=== PATIENT | female | born 1945 | race Caucasian/White ===

== ENCOUNTER → 2020-05-01 | Outpatient (CLI) | payer MEDICARE, BC ==
[2020-05-01 15:33] LABS: APPEARANCE,URINE CLEAR; BILIRUBIN,URINE NEGATIVE (NEGATIVE); COLOR,URINE YELLOW; GLUCOSE, URINE NEGATIVE (NEGATIVE); KETONES,URINE NEGATIVE (NEGATIVE); LEUKOCYTE ESTERASE,URINE NEGATIVE (NEGATIVE); NITRITE,URINE NEGATIVE (NEGATIVE); PROTEIN,URINE NEGATIVE (NEGATIVE); URINE SPECIFIC GRAVITY 1.012; UROBILINOGEN,URINE NEGATIVE mg/dL (<2.0)
[2020-05-01 15:56] LABS: ABSOLUTE BASOPHILS # (AUTO) 0.1 10^3/uL (0.0-0.2); ABSOLUTE EOSINOPHILS # (AUTO) 0.1 10^3/uL (0.0-0.6); ABSOLUTE LYMPHOCYTES (AUTO) 2.3 10^3/uL (0.5-4.7); ABSOLUTE MONOCYTES (AUTO) 0.7 10^3/uL (0.1-1.4); ABSOLUTE NEUT (AUTO) 5.8 10^3/uL (1.7-8.2); BASOPHILS % (AUTO) 0.8 % (0-2); HEMOGLOBIN 14.1 g/dL (12.0-15.5); LYMPHOCYTES % (AUTO) 25.8 % (13-45); MEAN CORPUSCULAR HEMOGLOBIN 31.4 pg (27.0-33.4); MEAN CORPUSCULAR HGB CONC 34.4 g/dL (32.0-36.0); MEAN CORPUSCULAR VOLUME 91 fl (80-97); PLATELET COUNT 270 10^3/uL (150-450); RED BLOOD COUNT 4.49 10^6/uL (3.72-5.28); RED CELL DISTRIBUTION WIDTH 13.2 % (11.5-14.0); SEGMENTED NEUTROPHILS % (AUTO) 64.4 % (42-78); TOTAL CELLS COUNTED % (AUTO) 100 %
[2020-05-01 16:19] LABS: ANION GAP 10 (5-19); BLOOD UREA NITROGEN 24 mg/dL (7-20); CALCIUM 9.9 mg/dL (8.4-10.2); CARBON DIOXIDE 32 mmol/L (22-30); CHLORIDE 94 mmol/L (98-107); GLUCOSE 106 mg/dL (75-110); POTASSIUM 3.8 mmol/L (3.6-5.0)
[2020-05-01 16:35] LABS: ERYTHROCYTE SEDIMENTATION RATE 10 mm/hr (0-30)
--- NOTE | 2020-05-01 17:26 | EKG REPORT ---
SEVERITY:- NORMAL ECG - SINUS RHYTHM : Confirmed by: Mary Mckenzie 01-May-2020 17:25:41
--- NOTE | 2020-05-02 13:22 | RADIOLOGY REPORT (SQ) ---
EXAM DESCRIPTION: CHEST PA/LATERAL IMAGES COMPLETED DATE/TIME: 05/01/2020 3:50 pm REASON FOR STUDY: PRE-OP COMPARISON: None. EXAM PARAMETERS: NUMBER OF VIEWS: two views TECHNIQUE: Digital Frontal and Lateral radiographic views of the chest acquired. RADIATION DOSE: NA LIMITATIONS: none FINDINGS: LUNGS AND PLEURA: No opacities, masses or pneumothorax. No pleural effusion. MEDIASTINUM AND HILAR STRUCTURES: No masses or contour abnormalities. HEART AND VASCULAR STRUCTURES: Heart normal size. No evidence for failure. BONES: No acute findings. HARDWARE: None in the chest. OTHER: No other significant finding. IMPRESSION: NO SIGNIFICANT RADIOGRAPHIC FINDING IN THE CHEST. TECHNICAL DOCUMENTATION: JOB ID: [id number] 2010 [employer]- All Rights Reserved Reading location - IP/workstation name: [email or web address]
== END ==
LOC: OD 14:50
PROVIDERS: ATTEND Orthopaedic Surgery
DX: Z01.810 Encounter for preprocedural cardiovascular examination (principal); Z01.811 Encounter for preprocedural respiratory examination; Z01.812 Encounter for preprocedural laboratory examination
CPT/HCPCS: 36415; 71046; 80048; 81001; 82040; 82306; 83036; 85025; 85652; 86141; 93005; 93010

== ENCOUNTER 2020-05-11 08:01 | Day surgery (SDC) | payer MEDICARE, BC ==
[~2020-05-11 08:01] MED LIST: ACETAMINOPHEN 325 MG TABLET ONE; ACETAMINOPHEN 325 MG TABLET PO PRN; CEFAZOLIN 2 GM/D5W RTU 2 GM/50 ML RTUPB IV ONE; CEFAZOLIN 2 GM/D5W RTU 2 GM/50 ML RTUPB IV PRN; CELECOXIB 200 MG CAPSULE ONE; CELECOXIB 200 MG CAPSULE PO PRN; GABAPENTIN 100 MG CAPSULE ONE; GABAPENTIN 100 MG CAPSULE PO PRN; LACTATED RINGERS 1000 ML IV PRN; LIDOCAINE 0.5% INJ-PF (5 MG/ML) 50 ML SDV SUBCUT PRN; OXYCODONE HCL SR 10 MG TABLET PO ONE; OXYCODONE HCL SR 10 MG TABLET PO PRN; SCOPOLAMINE HYDROBROMIDE 1.5 MG PATCH.TD72 ONE; SCOPOLAMINE HYDROBROMIDE 1.5 MG PATCH.TD72 TD PRN; TRAMADOL HCL 50 MG TABLET ONE; TRAMADOL HCL 50 MG TABLET PO PRN; TRANEXAMIC ACID INJ/PF 1,000 MG/10 ML SDV IV PRN; VANCOMYCIN HCL 1,000 MG in DEXTROSE 5%-WATER 250 ML IV PRN
[2020-05-11] MEDS ORDERED: BUPIVACAINE HCL 0.25 % INJ/PF (2.5 MG/1 ML) 30 ML VIAL ONE (09:11)
[2020-05-11] MEDS ORDERED: LIDOCAINE 1% INJ-PF (10 MG/ML) 30 ML SDV ONE (09:11)
[2020-05-11] MEDS ORDERED: VANCOMYCIN HCL INJ 1000 MG VIAL ONE (09:11)
[2020-05-11] MEDS ORDERED: KETOROLAC TROMETHAMINE INJ/PF 30 MG/1 ML SDV ONE (09:11)
[2020-05-11] MEDS ORDERED: OXYCODONE HCL IR 5 MG TABLET PO PRN ×4 (09:44)
[2020-05-11] MEDS ORDERED: NORMAL SALINE 1000 ML 1,000 ML IV ONE (09:44)
[2020-05-11] MEDS ORDERED: ZOLPIDEM TARTRATE 5 MG TABLET PO PRN (09:44)
[2020-05-11] MEDS ORDERED: DOCUSATE SODIUM 100 MG CAPSULE PO PRN (09:44)
[2020-05-11] MEDS ORDERED: ONDANSETRON 4 MG TAB.RAPDIS PO PRN (09:44)
[2020-05-11] MEDS ORDERED: MORPHINE SULFATE 10 MG/ML INJ IV PRN ×2 (09:44)
[2020-05-11] MEDS ORDERED: DIPHENHYDRAMINE HCL 25 MG CAPSULE PO PRN (09:44)
[2020-05-11] MEDS ORDERED: TRAMADOL HCL 50 MG TABLET PO PRN (09:44)
[2020-05-11] MEDS ORDERED: HYDROCHLOROTHIAZIDE PO SCH (10:00)
[2020-05-11] MEDS ORDERED: (PENDING PHARMACY ID) (Simvastatin [Simvastatin] 20 MG) PO SCH (10:00)
[2020-05-11] MEDS ORDERED: OLMESARTAN PO SCH (10:00)
[2020-05-11] MEDS ORDERED: MELOXICAM 7.5 MG TABLET PO SCH (10:00)
[2020-05-11] MEDS ORDERED: (PENDING PHARMACY ID) (Potassium Chloride [Klor-Con M20] 20 MEQ) PO SCH (10:00)
[2020-05-11] MEDS ORDERED: (PENDING PHARMACY ID) (Calcium Carbonate [Calcium] 500 MG) PO SCH (10:00)
[2020-05-11] MEDS ORDERED: [UNRECOGNIZED DRUG - OTHER] PO SCH (10:00)
[2020-05-11] MEDS ORDERED: FENTANYL CITRATE INJ/PF 100 MCG/2 ML AMPUL ONE ×2 (10:07→11:20)
[2020-05-11] MEDS ORDERED: MIDAZOLAM 2 MG/2 ML INJ ONE (10:07)
[2020-05-11] MEDS ORDERED: TRANEXAMIC ACID INJ/PF 1,000 MG/10 ML SDV ONE (10:08)
[2020-05-11] MEDS ORDERED: EPHEDRINE SULFATE INJ 50 MG/1 ML AMPULE ONE (10:08)
[2020-05-11] MEDS ORDERED: PROPOFOL INJ 200 MG/20 ML VIAL IV ONE (10:08)
[2020-05-11] MEDS ORDERED: TRANEXAMIC ACID INJ/PF 1,000 MG/10 ML SDV IV ONE (10:15)
[2020-05-11] MEDS ORDERED: PANTOPRAZOLE SODIUM 20 MG TABLET.DR PO ONE (10:15)
[2020-05-11] MEDS ORDERED: DEXAMETHASONE SOD PHOS INJ 10 MG/1 ML VIAL IV ONE (10:20)
[2020-05-11] MEDS ORDERED: PROMETHAZINE HCL INJ 25 MG/1 ML VIAL IV PRN ×2 (11:34)
[2020-05-11] MEDS ORDERED: DIPHENHYDRAMINE HCL 50 MG/ML VIAL IV PRN (11:34)
[2020-05-11] MEDS ORDERED: MEPERIDINE HCL/PF INJ 25 MG/1 ML DISP.SYRIN IV PRN (11:34)
[2020-05-11] MEDS ORDERED: FENTANYL CITRATE INJ/PF 100 MCG/2 ML AMPUL IV PRN ×3 (11:34)
[2020-05-11] MEDS ORDERED: ONDANSETRON HCL INJ/PF 4 MG/2 ML SDV IV PRN (11:34)
[2020-05-11] MEDS ORDERED: OXYCODONE-ACETAMINOPHEN 5-325 MG TABLET PO PRN ×2 (11:34)
[2020-05-11] MEDS ORDERED: HYDROMORPHONE HCL INJ/PF 2 MG/ML AMPULE IV PRN (11:36)
--- NOTE | 2020-05-11 12:21 | Operative Report ---
Operative Report DATE OF SURGERY: 05/11/20 PREOPERATIVE DIAGNOSIS: Severe left hip primary osteoarthritis POSTOPERATIVE DIAGNOSIS: Severe left hip primary osteoarthritis OPERATION: Left total hip arthroplasty SURGEON: PARTH DANGELO JR ANESTHESIA: GA COMPLICATIONS: None ESTIMATED BLOOD LOSS: 300 PROCEDURE: Implants: [employer] a fit size 6 femoral stem with lateral offset, a R3 size 50 cup, and a standard liner, a 0 neck length 32 mm Oxinium head BRIEF HISTORY: 74 year old female with severe degenerative arthritis of left hip, which has failed conservative treatment and has elected for a total hip arthroplasty. Risks include but are not limited to bleeding, infection, anesthesia, , injury to nerve or vessel, pain, scar, leg length inequality, dislocation, future surgery, and blood clots. Patient read through the pre-op counseling form and signed and consented for surgery on their left hip. OPERATIVE PROCEDURE: Patient was brought to the operating room on and underwent spinal anesthesia. 2 grams of Ancef and 1 g of vancomycin was given. After proper anesthesia was obtained, patient was positioned, padded, prepped, and draped in the usual sterile fashion on the operating room table. Appropriate time out was performed. An anterior approach to the hip was undertaken with meticulous hemostasis through the deep interval. A capsulectomy was performed followed by exposure of the femoral neck. The femoral neck was cut in line with the femoral broach and the femoral head was removed. The acetabulum was then exposed with three retractors in an atraumatic fashion. Soft tissue and osteophytes were removed. Medialization reaming was performed followed by anatomic reaming up to accept a 50 mm acetabulum. Wound was irrigated with dilute betadyne solution and the 50 mm acetabulum was impacted into correct position and stability checked by manipulating the impaction handle which rocked the pelvis. A standard liner was impacted into the shell with good stability. Potential impinging osteophytes were removed. Attention was then directed toward the femur, which was exposed with two retractors in an atraumatic fashion. A bone hook was placed to carefully perform releases along the superior capsule until the femur was safely delivered through the wound. A preparing box tender was utilized followed by lateralization rasping and then broaching up to accept a 6 femur. With a lateral offset neck and a 0 neck length head, stability was good in flexion and extension with equal leg lengths. The real 6 offset femur was impacted into a copiously irrigated femoral canal. A 32 mm Oxinium head was impacted on a clean dry femoral taper. The hip was irrigated and reduced, further irrigation with antibiotic solution, betadine solution, then antibiotic solution. Bleeders were coagulated with bovie cautery. The fascia was then closed with number 2 Stratofix; the subcutaneous tissue closed with interrupted inverted 2-0 monocryl then running 3-0 monocryl subcuticular. A silver dressing was then applied. All needle sponge and instrument counts were correct. Patient was awakened from sedation anesthesia and taken to recovery room in good condition. Thank you, Parth Dangelo, DO
--- NOTE | 2020-05-11 12:29 | Discharge Summary ---
Discharge Summary (SDC) - Discharge Final Diagnosis: Left hip severe primary osteoarthritis Date of Surgery: 05/11/20 Discharge Date: 05/11/20 Condition: Stable Treatment or Instructions: Full details of postoperative instructions have been provided to the patient in the clinic. Additionally they should maintain their bandage in place for 10 days, and then changed to a dry dressing. They can take showers with this occlusive dressing but any further dressing should also be occlusive. No showers with the wound unprotected until cleared by me in the clinic. If the bandage falls off early or become saturated they can change as needed to another occlusive dressing. Follow-up with Dr. Parth Wharton, orthopedic surgeon at [facility] for surgery, in 10 days. Call for an appointment. . [address], [place] [address] Discharge Diet: As Tolerated Respiratory Treatments at Home: Deep Breathing/Coughing Discharge Activity: Activity As Tolerated, No Driving, Keep Legs Elevated, No tub bath, Walk Frequently Adaptive Devices on Discharge: Rolling Walker, Bedside Commode Report the Following to Your Physician Immediately: Shortness of Breath, Fever over 101 Degrees, Unusual Bleeding, Drainage-Yellow
[2020-05-11] MEDS ORDERED: KETAMINE HCL INJ 500 MG/10 ML VIAL ONE (12:44)
[2020-05-11] MEDS: FENTANYL CITRATE INJ/PF 100 MCG/2 ML AMPUL ONE ×2 (12:50→13:00)
[2020-05-11] MEDS ORDERED: NEOSTIGMINE METHYLSULFATE 10 MG/10 ML VIAL ONE (13:48)
[2020-05-11] MEDS ORDERED: GLYCOPYRROLATE 1 MG/5 ML VIAL ONE (13:48)
[2020-05-11] MEDS ORDERED: ROCURONIUM BROMIDE INJ 50 MG/5 ML VIAL IV ONE (13:48)
[2020-05-11] MEDS ORDERED: ONDANSETRON HCL INJ/PF 4 MG/2 ML SDV ONE (13:48)
[2020-05-11] MEDS ORDERED: LIDOCAINE 2% INJ-PF (20 MG/ML) 2 ML AMPUL ONE (13:48)
[2020-05-11] MEDS ORDERED: DEXAMETHASONE SOD PHOSPHATE INJ 4 MG/1 ML VIAL ONE (13:48)
[2020-05-11] MEDS ORDERED: SUCCINYLCHOLINE CHLORIDE INJ 200 MG/10 ML VIAL ONE (13:48)
[2020-05-11] MEDS ORDERED: CEFAZOLIN 2 GM/D5W RTU 2 GM/50 ML RTUPB IV SCH (14:00)
--- NOTE | 2020-05-11 14:10 | RADIOLOGY REPORT (SQ) ---
EXAM DESCRIPTION: HIP LEFT AP/LATERAL IMAGES COMPLETED DATE/TIME: 05/11/2020 1:08 pm REASON FOR STUDY: post op M16.12 UNILATERAL PRIMARY OSTEOARTHRITIS, LEFT HIP COMPARISON: None. NUMBER OF VIEWS: Two view(s). TECHNIQUE: Digital radiographic images of the left hip post-procedure. LIMITATIONS: None. FINDINGS: BONES: No worrisome or unexpected findings post-procedure. DEVICE: Bi-polar prothesis. Device appears in appropriate location. SOFT TISSUES: No worrisome findings. Expected postoperative soft tissue changes. IMPRESSION: SATISFACTORY POSTOPERATIVE LEFT HIP. TECHNICAL DOCUMENTATION: JOB ID: [id number] 2010 [employer]- All Rights Reserved Reading location - IP/workstation name: [email or web address]
--- NOTE | 2020-05-11 15:18 | RADIOLOGY REPORT (SQ) ---
EXAM DESCRIPTION: NO CHG FLUORO; HIP IN OPERATING RM IMAGES COMPLETED DATE/TIME: 05/11/2020 3:02 pm REASON FOR STUDY: LEFT HIP ARTHROPLASTY ASSISTED WITH FLUORO IN OR M16.12 UNILATERAL PRIMARY OSTEOA RTHRITIS, LEFT HIP COMPARISON: None. FLUOROSCOPY TIME: 0.1 second 1 images saved to PACS. TECHNIQUE: Intra-operative images acquired during surgical procedure to evaluate progress. NUMBER OF IMAGES: 1 LIMITATIONS: None. FINDINGS: Fluoroscopic image centered over left hip arthroplasty. IMPRESSION: IMAGE(S) OBTAINED DURING PROCEDURE. COMMENT: Quality ID [id number]: Final reports for procedures using fluoroscopy that document radiation exp osure indices, or exposure time and number of fluorographic images (if radiation exposure indices are not available) Please consult full operative report of the attending physician for description of the procedure. TECHNICAL DOCUMENTATION: JOB ID: [id number] 2010 [employer]- All Rights Reserved Reading location - IP/workstation name: [email or web address]
--- NOTE | 2020-05-11 15:18 | RADIOLOGY REPORT (SQ) ---
EXAM DESCRIPTION: NO CHG FLUORO; HIP IN OPERATING RM IMAGES COMPLETED DATE/TIME: 05/11/2020 3:02 pm REASON FOR STUDY: LEFT HIP ARTHROPLASTY ASSISTED WITH FLUORO IN OR M16.12 UNILATERAL PRIMARY OSTEOA RTHRITIS, LEFT HIP COMPARISON: None. FLUOROSCOPY TIME: 0.1 second 1 images saved to PACS. TECHNIQUE: Intra-operative images acquired during surgical procedure to evaluate progress. NUMBER OF IMAGES: 1 LIMITATIONS: None. FINDINGS: Fluoroscopic image centered over left hip arthroplasty. IMPRESSION: IMAGE(S) OBTAINED DURING PROCEDURE. COMMENT: Quality ID [id number]: Final reports for procedures using fluoroscopy that document radiation exp osure indices, or exposure time and number of fluorographic images (if radiation exposure indices are not available) Please consult full operative report of the attending physician for description of the procedure. TECHNICAL DOCUMENTATION: JOB ID: [id number] 2010 [employer]- All Rights Reserved Reading location - IP/workstation name: [email or web address]
[2020-05-11] MEDS: ACETAMINOPHEN 325 MG TABLET PO SCH ×2 (16:01→21:50)
[2020-05-11] MEDS: KETOROLAC TROMETHAMINE INJ/PF 30 MG/1 ML SDV IV SCH (16:02)
[2020-05-11] MEDS: CEFAZOLIN SODIUM 2 GM in DEXTROSE 5%-WATER 100 ML IV SCH ×2 (16:04→21:49)
[2020-05-11] MEDS ORDERED: RINGERS SOLUTION,LACTATED 1,000 ML IV PRN (20:09)
[2020-05-11] MEDS ORDERED: RINGERS SOLUTION,LACTATED 500 ML IV ONE (21:00)
[2020-05-11] MEDS: GABAPENTIN 100 MG CAPSULE PO SCH (21:51)
[2020-05-11] MEDS ORDERED: SIMVASTATIN 10 MG TABLET PO SCH (22:00)
[2020-05-12] MEDS: KETOROLAC TROMETHAMINE INJ/PF 30 MG/1 ML SDV IV SCH ×3 (01:13→13:46)
[2020-05-12] MEDS: ACETAMINOPHEN 325 MG TABLET PO SCH ×2 (05:40→13:46)
--- NOTE | 2020-05-12 08:06 | PDOC PROGRESS REPORT ---
Subjective Progress Note for:: 05/12/20 Subjective:: Patient seen and examined this AM. Some overnight hypotension that remains asymptomatic. She reports good pain control and ability to perform with PT. Wishes for DC home today. Reason For Visit: M16.12 UNILATERAL PRIMARY OSTEOARTHRITIS, LEFT HIP Physical Exam Vital Signs: Temp Pulse Resp BP Pulse Ox 97.9 F 72 18 90/46 L 96 05/12/20 03:37 05/12/20 03:37 05/12/20 03:37 05/12/20 03:37 05/12/20 03:37 Intake & Output 05/11/20 05/12/20 05/13/20 06:59 06:59 06:59 Intake Total 2145 Output Total 300 Balance 1845 Weight 86.18 kg Physical Exam: Left lower extremity -Pulses 2+ distally -Compartments soft -Sensation grossly intact to L3-4-5 S1 -Motor grossly intact to EHL TA gastroc and quad -Dressing clean dry and intact No acute distress alert and oriented x3 Results Laboratory Results: 05/11/20 08:55 05/11/20 05/11/20 08:55 08:55 Potassium 3.8 Blood Type A NEGATIVE Antibody Screen NEGATIVE Impressions: Fluoroscopy 05/11/20 00:00 IMPRESSION: IMAGE(S) OBTAINED DURING PROCEDURE. Hip X-Ray 05/11/20 09:48 IMPRESSION: SATISFACTORY POSTOPERATIVE LEFT HIP. Assessment & Plan - Diagnosis (1) History of total left hip arthroplasty Is this a current diagnosis for this admission?: Yes Plan: - 2 doses of Ancef postoperatively q 8 hours to complete 24 hours perioperativ yancy -Weightbearing as tolerated, no precautions, encourage out of bed KEENA for ADL training - PT/OT -We will reevaluate blood pressure this morning after fluid bolus, hold on antihypertensive medication, and ability to participate with physical therapy. If stable will allow for discharge home today. -aspirin 325 daily for DVT prophylaxis for 6 weeks -multimodal pain management to avoid excessive narcotics, including gabapentin, tramadol, Toradol, acetaminophen. -Dressing should not be removed for 7 to 10 days until seen in the office -May shower with the dressing intact, if it starts to come off she should not get the incision wet. -Follow-up with Dr. Parth Wharton, orthopedic surgeon at [facility] for surgery, in 10 days. Call for an appointment. . [address], [place] [address] - Time Time Spent with patient: Less than 15 minutes
[2020-05-12] MEDS: GABAPENTIN 100 MG CAPSULE PO SCH (09:35)
[2020-05-12] MEDS ORDERED: ASPIRIN 325 MG TABLET PO SCH (10:00)
[2020-05-12] MEDS ORDERED: POLYETHYLENE GLYCOL 3350 POWDER 17 GM/1 PACKET PO SCH (10:00)
[2020-05-12] MEDS ORDERED: HYDROCHLOROTHIAZIDE 12.5 MG TABLET PO SCH (10:00)
[2020-05-12] MEDS ORDERED: LOSARTAN POTASSIUM 25 MG TABLET PO SCH (10:00)
[2020-05-12] MEDS ORDERED: POTASSIUM CHLORIDE 10 MEQ TABLET.ER PO SCH (10:00)
[2020-05-12] MEDS ORDERED: CALCIUM CARBONATE 500 MG TAB.CHEW PO SCH (10:00)
[2020-05-12] MEDS ORDERED: VARENICLINE TARTRATE 1 MG TABLET PO SCH (10:00)
[2020-05-12 14:33] VITALS: BP 127/80
[2020-05-13] MEDS ORDERED: CELECOXIB 200 MG CAPSULE PO SCH (10:00)
== END 2020-05-12 14:44 | disposition home health service (06) ==
LOC: OROUT 08:01 → 4N 14:21 → OROUT 05-12 14:44
PROVIDERS: ATTEND Orthopaedic Surgery
DX: M16.12 Unilateral primary osteoarthritis, left hip (principal); Z79.899 Other long term (current) drug therapy; E78.00 Pure hypercholesterolemia, unspecified; F17.210 Nicotine dependence, cigarettes, uncomplicated; E66.9 Obesity, unspecified; M25.552 Pain in left hip
CPT/HCPCS: 86900; 86901; 36415; 86850; 84132; 73502; 73501; 97530 ×2; 97110 ×2; 97116 ×2; 97162; 97535 ×2; 97166; 01214; 27130; U0003; A9270 ×17; J2250; J0690 ×2; J3490 ×8; J1100; J3010; J1885 ×2; J2710; J0330; J2405; J7060 ×2; J7120 ×2; J2704; J3370; C9803; 87635